=== PATIENT | female | born 1995 | race Caucasian/White ===

== ENCOUNTER 2020-03-16 17:19 | Outpatient (REF) | payer BC, SELFPAY | END 2020-03-16 17:20 | disposition home or self-care (01) | LOC: HO.LAB 17:19 | PROVIDERS: Visit Provider Internal Medicine | DX: Z20.828 Contact with and (suspected) exposure to other viral communicable diseases (principal) | CPT/HCPCS: C9803; U0003 ==

== ENCOUNTER 2020-04-27 17:11 | Outpatient (REF) | payer BC, SELFPAY | END 2020-04-27 17:12 | disposition home or self-care (01) | LOC: HO.LAB 17:11 | PROVIDERS: Visit Provider Internal Medicine | DX: Z20.822 Contact with and (suspected) exposure to COVID-19 (principal) | CPT/HCPCS: 36415; C9803; U0003 ==

== ENCOUNTER 2021-01-27 18:56 | Emergency (ER) | payer BC, SELFPAY ==
[2021-01-27 20:01] VITALS: BP 161/81; PULSE 101; RESP 18; TEMP 37.3; O2SAT 100; BMI 56.2
--- NOTE | 2021-01-27 20:04 | ED.ANXIETY ---
HPI - Anxiety General Chief Complaint: Anxiety Stated Complaint: Anxiety Source: patient Mode of arrival: ambulatory Limitations: no limitations History of Present Illness HPI narrative: 25-year-old female presents with acute anxiety. States that she was in and situation that exacerbated her anxiety. MD complaint: anxiety Onset (ago): hour(s) (Within the hour of arrival) Symptoms: dyspnea Severity: mild Quality: intermittent Place: home History of similar episodes: Yes Provoking factors: emotional stress Relieving factors: nothing Exacerbating factors: thinking about event Associated symptoms: denies other symptoms Related Data Previous Rx's Medication Instructions Recorded hydroxyzine HCl 25 mg tablet 25 mg PO BID PRN #30 tab 01/27/21 Allergies Allergy/AdvReac Type Severity Reaction Status Date / Time sulfamethoxazole Allergy Intermediate HIVES Verified 01/27/21 20:07 [From Bactrim] trimethoprim [From Bactrim] Allergy Intermediate HIVES Verified 01/27/21 20:07 Sulfa (Sulfonamide Allergy Unknown Hives Verified 01/27/21 20:07 Antibiotics) Review of Systems Review of Systems: Constitutional: No Fever, No Chills ENT/Mouth: No Ear Pain, No Nasal Congestion, No sore throat Eyes: No Eye Pain, No Swelling, No Redness Cardiovascular: No Chest Pain, No SOB Respiratory: No Cough, No Sputum, No Dyspnea Gastrointestinal: No Nausea, No Vomiting, No Diarrhea, No Hematochezia, No Melena Genitourinary: No Dysuria, No Urinary Frequency, No Hematuria Musculoskeletal: No Myalgias Skin: No Skin Lesions, No rash Neuro: No Weakness, No Numbness, No Paresthesias, No Dizziness, No Headache Psych: positive Anxiety, no Depression, no SI/HI Heme/Lymph: No Lymphadenopathy Endocrine: No Polyuria, No Polydipsia Yes all other systems are reviewed and are negative [facility] Past Medical History Attestation statement: The following information was validated with the patient. Source: old records reviewed Medical History Lupus Seizures Social History Social History Advance Directives: No Advance Directives Information Provided: Yes Patient : No Physical Exam Vital Signs: Vital Signs: Last Vital Signs Temp 99.1 F 01/27/21 20:01 Pulse 101 H 01/27/21 20:01 Resp 18 01/27/21 20:01 BP 161/81 H 01/27/21 20:01 Pulse Ox 100 01/27/21 20:01 Body Mass Index 56.2 Appearance: Alert. Oriented X3. Mild emotional distress. Eyes: Pupils equal, round and reactive to light. Sclera nonicteric. ENT: Pharynx normal. Moist mucous membranes. Neck: Normal inspection. Neck supple. CVS: Normal heart rate and rhythm. Pulses normal. Respiratory: No respiratory distress. Breath sounds normal. Abdomen: Soft and nontender. Obese. Skin: Skin warm and dry. Normal skin color. Normal skin turgor. Extremities: No lower extremity edema. Gait well-balanced well coordinated. Neuro: No motor deficit. No sensory deficit. Cranial nerves 2-12 intact. Course Course Course Narrative: 25-year-old female presents with anxiety. Stated that she was in a car with her brother and [id number], [id number] had an allergic reaction to environmental allergen. Patient states that she became very anxious because of that event. States that she is having a difficult time with her emotions at this time. she denies suicidal ideation, homicidal ideation, has a prior history of anxiety, but does not have any prescribed medications. Lung sounds clear to auscultation, heart rate is 87 during my assessment, apical pulse occult pulses to extremities. Patient appears nontoxic and is afebrile. Will try hydroxyzine. Will refer to [facility] as an outpatient. Patient verbalized understanding of and agrees to plan of care discharge home. MDM - Anxiety Differential Diagnosis Differential diagnosis: Likely hyperventilation, panic disorder and acute anxiety Medical Records Attestation: I reviewed the patient's medical records. Discharge Plan Discharge Clinical Impression: Acute anxiety Patient Disposition: Home, Self-Care Instructions: Anxiety (ED) Additional Instructions: You were evaluated for anxiety. Please follow-up with [facility] as needed. Thank you for choosing this emergency department for evaluation. Please follow-up with primary care physician as needed. Return to the emergency department for any new, concerning, or worsening symptoms. Prescriptions: New hydroxyzine HCl 25 mg tablet 25 mg PO BID PRN (Reason: anxiety) Qty: 30 RF: 0 Referrals: [facility] [Provider Group] - 2 days (Anxiety)
[2021-01-27] MEDS: hydrOXYzine HCL 25 MG TABLET PO (20:41)
== END 2021-01-27 20:54 | disposition home or self-care (01) ==
PROVIDERS: Emergency Provider Internal Medicine; PCP Internal Medicine
DX: F41.9 Anxiety disorder, unspecified (principal)
CPT/HCPCS: 99283

== ENCOUNTER → 2021-06-01 11:17 | Outpatient (BNVA) | payer MEDICAID, SELFPAY | PROVIDERS: PCP Internal Medicine; Visit Provider Nurse Practitioner Family | DX: R56.9 Unspecified convulsions (principal); R41.3 Other amnesia; G47.33 Obstructive sleep apnea (adult) (pediatric); Z99.89 Dependence on other enabling machines and devices | CPT/HCPCS: 99202 ==